=== PATIENT | female | born 1985 | race African-American/Black ===

== ENCOUNTER 2023-01-19 15:13 | Outpatient (CLI) | payer BC | END 2023-01-19 15:14 | disposition home or self-care (01) | LOC: CSHMAMMO 15:13 | PROVIDERS: ATTEND Plastic Surgery | DX: Z12.31 Encounter for screening mammogram for malignant neoplasm of breast (principal); Z98.890 Other specified postprocedural states | CPT/HCPCS: 77063; 77067 ==